=== PATIENT | male | born 1980 | race African-American/Black ===

== ENCOUNTER 2023-05-01 10:23 | Emergency (ER) | payer SELFPAY ==
[2023-05-01 10:29] VITALS: BP 118/76; PULSE 93; RESP 18; TEMP 97.9; BMI 30.1
[2023-05-01] MEDS ORDERED: IBUPROFEN 600 MG TABLET (FP) PO ONE ×2 (10:48→10:58)
== END 2023-05-01 11:31 | disposition home or self-care (01) ==
LOC: JERFT 10:23
PROC: 2W3DX1Z Immobilization of Left Lower Arm using Splint (ICD-10-PCS; principal; 2023-05-01)
DX: S66.902A Unspecified injury of unspecified muscle, fascia and tendon at wrist and hand level, left hand, initial encounter (principal); S69.92XA Unspecified injury of left wrist, hand and finger(s), initial encounter; M25.532 Pain in left wrist; X50.0XXA Overexertion from strenuous movement or load, initial encounter; Y93.F2 Activity, caregiving, lifting; Y92.009 Unspecified place in unspecified non-institutional (private) residence as the place of occurrence of the external cause
CPT/HCPCS: 73110-TC-LT-FY; 99283-25